=== PATIENT | male | born 1960 | race Caucasian/White ===

== ENCOUNTER 2018-03-25 15:27 | Emergency (ER) | payer SELFPAY ==
[~2018-03-25] VITALS: Ht 177.8 cm; Wt 72.6 kg
--- NOTE | 2018-03-25 16:19 | RAD ---
CT HEAD WITHOUT CONTRAST 03/25/2018 3:44 PM Indication: fall hit head, right side head and ear pain
no priors Comparison: None Procedure: Multidetector CT imaging of the head was performed without the administration of contrast. Findings: There is no evidence of acute intracranial hemorrhage. There is no evidence of acute territorial infarction. Please note that CT is limited for evaluation of acute ischemia. No mass effect or midline shift is identified . The ventricles and basilar cisterns have an appropriate appearance. No abnormal extra-axial fluid collections are seen. No acute osseous changes are identified. Impression: No evidence of acute intracranial abnormality CT cervical spine without contrast. 03/25/2018 3:44 PM Indication:fall hit head, right side head and ear pain
no priors Comparison Study: None Technique: Multidetector CT imaging of the cervical spine was obtained without administration of contrast. Findings: There is no evidence of acute fracture or alignment abnormality of the cervical spine. Fusion of the C2 and C3 vertebra noted both anteriorly and posteriorly. The atlantoaxial articulation and craniocervical junction remain intact. No prevertebral soft tissue edema is identified. Degenerative disc space narrowing is seen at C5 through T1. Diffuse facet arthrosis is noted. Facet joints remain aligned. No bony compromise spinal canal is seen. IMPRESSION: No evidence of acute fracture or alignment abnormality of the cervical spine CT DOSING PQRS STATEMENT: One or more of the following individualized dose reduction techniques were utilized for these examinations: 1. Automated exposure control 2. Adjustment of the mA and/or kV according to patient size 3. Use of iterative reconstruction technique Electronically signed by: Max Jarquin MD (03/25/2018 4:16 PM) [facility]
[2018-03-25] MEDS ORDERED: HYDR-971 PO (16:39)
--- NOTE | 2018-03-25 16:39 | PHYS DOC ---
Past Medical History Past Medical History: No Pertinent History Alcohol Use: None Drug Use: None Adult General Chief Complaint Chief Complaint: HEAD, FACE, NECK, [facility] HPI Patient is a 58 year old male who presented complaining of injury to his head and neck. He states he was working on a project and a piece of 2.4 hit him in right side of head and neck without loss of consciousness last night at 1900 patient complaining of pain since his injury with mild dizziness and denies nausea and vomiting, fever and chills, focal neuro deficit. Patient treated his pain 02/09 and states his last tetanus shot was about 5 years ago. Review of Systems Review of Systems Constitutional: Denies fever or chills [] Eyes: Denies change in visual acuity, redness, or eye pain [] HENT: Denies nasal congestion or sore throat [] Respiratory: Denies cough or shortness of breath [] Cardiovascular: No additional information not addressed in HPI [] GI: Denies abdominal pain, nausea, vomiting, bloody stools or diarrhea [] : Denies dysuria or hematuria [] Musculoskeletal: Denies back pain or joint pain [] Integument: Denies rash or skin lesions [] Neurologic: Reports dizziness and headache, denies focal weakness or sensory changes [] Endocrine: Denies polyuria or polydipsia [] All other systems were reviewed and found to be within normal limits, except as documented in this note. Current Medications Current Medications Current Medications Medications (Trade) Dose Ordered Sig/Srinivasan Start Time Stop Time Status Last Admin Dose Admin Acetaminophen/ Hydrocodone Bitart (Lortab 5/325) 1 tab 1X ONCE 03/25/18 17:00 03/25/18 17:01 03/25/18 16:35 1 TAB Ketorolac Tromethamine (Toradol Im) 60 mg 1X ONCE 03/25/18 16:45 03/25/18 16:45 DC Allergies Allergies Allergies Coded Allergies Type Severity Reaction Last Updated Verified No Known Drug Allergies 03/25/18 No Physical Exam Physical Exam Constitutional: Well developed, well nourished, mild distress, non-toxic appearance. [] HENT: Normocephalic, atraumatic, right ear contusion and small abrasion, bilateral external ears normal, oropharynx moist, no oral exudates, nose normal. [] Eyes: PERRLA, EOMI, conjunctiva normal, no discharge. [] Neck: Immobilized at arrival to ER [] Cardiovascular:Heart rate regular rhythm, no murmur [] Lungs & Thorax: Bilateral breath sounds clear to auscultation [] Abdomen: Bowel sounds normal, soft, no tenderness, no masses, no pulsatile masses. [] Skin: Warm, dry, no erythema, no rash. [] Back: No tenderness, no CVA tenderness. [] Extremities: No tenderness, no cyanosis, no clubbing, ROM intact, no edema. [] Neurologic: Alert and oriented X 3, normal motor function, normal sensory function, no focal deficits noted. [] Psychologic: Affect normal, judgement normal, mood normal. [] Current Patient Data Vital Signs Vital Signs Date Time Temp Pulse Resp B/P (MAP) Pulse Ox O2 Delivery O2 Flow Rate FiO2 03/25/18 16:35 16 97 Room Air 03/25/18 15:38 97.8 64 152/78 (102) 97.8 EKG EKG [] Radiology/Procedures Radiology/Procedures [][facility] [address] [place] [address] IMAGING REPORT Signed PATIENT: BROOKE GUZMAN ACCOUNT: [id number] : 1960 LOCATION: ER AGE: 58 SEX: M EXAM STATUS: REG ER ORD. PHYSICIAN: JOSIE CANO MD REASON: injury PROCEDURE: CT HEAD AND CERVICAL SPINE WO CT HEAD WITHOUT CONTRAST 03/25/2018 3:44 PM Indication: fall hit head, right side head and ear pain
no priors Comparison: None Procedure: Multidetector CT imaging of the head was performed without the administration of contrast. Findings: There is no evidence of acute intracranial hemorrhage. There is no evidence of acute territorial infarction. Please note that CT is limited for evaluation of acute ischemia. No mass effect or midline shift is identified . The ventricles and basilar cisterns have an appropriate appearance. No abnormal extra-axial fluid collections are seen. No acute osseous changes are identified. Impression: No evidence of acute intracranial abnormality CT cervical spine without contrast. 03/25/2018 3:44 PM Indication:fall hit head, right side head and ear pain
no priors Comparison Study: None Technique: Multidetector CT imaging of the cervical spine was obtained without administration of contrast. Findings: There is no evidence of acute fracture or alignment abnormality of the cervical spine. Fusion of the C2 and C3 vertebra noted both anteriorly and posteriorly. The atlantoaxial articulation and craniocervical junction remain intact. No prevertebral soft tissue edema is identified. Degenerative disc space narrowing is seen at C5 through T1. Diffuse facet arthrosis is noted. Facet joints remain aligned. No bony compromise spinal canal is seen. IMPRESSION: No evidence of acute fracture or alignment abnormality of the cervical spine CT DOSING PQRS STATEMENT: One or more of the following individualized dose reduction techniques were utilized for these examinations: 1. Automated exposure control 2. Adjustment of the mA and/or kV according to patient size 3. Use of iterative reconstruction technique Electronically signed by: Max Burch MD (03/25/2018 4:16 PM) [facility] DICTATED and SIGNED BY: MAX BURCH MD DATE: 03/25/18 1602 Course & Med Decision Making Course & Med Decision Making Pertinent Imaging studies reviewed. (See chart for details) Evolution of patient in ER showed 58-year-old male patient with injury to right side of his head last night at home. Patient had contusion of ear and unremarkable CT of head and C-spine. Patient treated with [place] and felt better. Patient instructed to follow-up with a primary care physician from the provided list in ER. [] Dragon Disclaimer Dragon Disclaimer This electronic medical record was generated, in whole or in part, using a voice recognition dictation system. Departure Departure Impression: Primary Impression: Head injury Additional Impression: Contusion of right ear Disposition: HOME, SELF-CARE (at 1636) Condition: IMPROVED Referrals: NO PCP (PCP) Patient Instructions: Contusion, Head Injury, Adult Additional Instructions: Drink plenty of liquids Follow-up with your primary care physician in 3-5 days Return to ER if not getting better Apply ice on affected area Scripts Hydrocodone/Apap 5-325 (NORCO 5-325 TABLET) 1 Each Tablet 1 TAB PO PRN Q6HRS PRN for PAIN, #14 TAB 0 Refills Prov: JOSIE CANO MD 03/25/18 Problem Qualifiers JOSIE CANO MD Mar 25, 2018 16:39
[2018-03-25] MEDS ORDERED: KETOROLAC 60 MG/2 ML INJ. IM ONE (16:45)
[2018-03-25 16:51] VITALS: BP 119/67
[2018-03-25] MEDS ORDERED: HYDROcodone/APAP 5/325MG 1 TAB TABLET PO ONE (17:00)
== END 2018-03-25 17:00 | disposition home or self-care (01) ==
LOC: ER 15:27
DX: S00.431A Contusion of right ear, initial encounter (principal); S09.90XA Unspecified injury of head, initial encounter; S19.9XXA Unspecified injury of neck, initial encounter; R42 Dizziness and giddiness; W22.8XXA Striking against or struck by other objects, initial encounter; Y93.89 Activity, other specified; Y92.89 Other specified places as the place of occurrence of the external cause; Y99.8 Other external cause status
CPT/HCPCS: 70450; 72125; 99284-25

== ENCOUNTER 2019-12-22 03:33 | Emergency (ER) | payer SELFPAY ==
[~2019-12-22] VITALS: Ht 165.1 cm; Wt 90.0 kg
[~2019-12-22 03:33] MED LIST: HYDR-3164 PO
[2019-12-22] MEDS ORDERED: VANCOMYCIN 1GM IVPB FOR OMNI 250 ML IV ONE (04:15)
[2019-12-22] MEDS ORDERED: HYDROcodone/APAP 7.5/325MG 1 TAB TABLET PO ONE (04:30)
[2019-12-22] MEDS ORDERED: FUROSEMIDE 40 MG/4 ML VIAL. IVP ONE (04:30)
[2019-12-22 05:00] LABS: BASO # 0.1 x10^3/uL (0.0-0.2); BASO % 1 % (0-3); EOS # 0.2 x10^3/uL (0.0-0.7); EOS % 3 % (0-3); HEMATOCRIT 40.9 % (39.0-53.0); HEMOGLOBIN 13.6 g/dL (13.0-17.5); LYMPH # 1.3 x10^3/uL (1.0-4.8); LYMPH % 16 % (24-48); MEAN CORPUSCULAR HEMOGLOBIN 30 pg (25-35); MEAN CORPUSCULAR HGB CONC 33 g/dL (31-37); MEAN CORPUSCULAR VOLUME 90 fL (79-100); MONO # 0.9 x10^3/uL (0.0-1.1); MONO % 11 % (0-9); NEUT # 5.6 x10^3/uL (1.8-7.7); NEUT % 69 % (31-73); PLATELET COUNT 217 x10^3/uL (140-400); RED BLOOD COUNT 4.55 x10^6/uL (4.30-5.70); RED CELL DISTRIBUTION WIDTH 13.4 % (11.5-14.5); WHITE BLOOD COUNT 8.1 x10^3/uL (4.0-11.0)
[2019-12-22] MEDS ORDERED: VANCOMYCIN 2 GM in IV NORMAL SALINE 500ML BAG 500 ML IV ONE (05:00)
--- NOTE | 2019-12-22 05:06 | PHYS DOC ---
Past Medical History Past Medical History: No Pertinent History Smoking Status: Current Every Day Smoker Alcohol Use: Occasionally Drug Use: None General Adult EDM: Chief Complaint: LOWER EXTREMITY SWELLING HPI: HPI: Patient is a 59-year-old male who presents with complaint of bilateral lower leg swelling and pain. Patient states that he noticed some drainage from the anterior aspect of his left lower leg earlier yesterday. He states that he has been noticing some swelling to his legs for the last few days, stating that he has been up on his feet a lot, especially on concrete. Patient immediately stating that he would not be able to stay in the hospital, stating that he has to move from his house. Patient states that he is hoping that he can just get some antibiotics because he is afraid he may have some infection in his leg. He denies any chest pain or shortness of breath. He also denies any fever. Patient rates the pain in his legs at a 7 out of 10. [] Review of Systems: Review of Systems: Constitutional: Denies fever or chills. [] Respiratory: Denies cough or shortness of breath. [] Cardiovascular: Denies chest pain or edema. [] GI: Denies abdominal pain, nausea, vomiting. [] Musculoskeletal: Complains of bilateral lower leg swelling and pain. [] Neurologic: Denies headache, focal weakness or sensory changes. [] A full 10 point review of systems has been reviewed and is otherwise negative. Heart Score: Risk Factors: Risk Factors: DM, Current or recent (<one month) smoker, HTN, HLP, family history of CAD, obesity. Risk Scores: Score 0 - 3: 2.5% MACE over next 6 weeks - Discharge Home Score 4 - 6: 20.3% MACE over next 6 weeks - Admit for Clinical Observation Score 7 - 10: 72.7% MACE over next 6 weeks - Early Invasive Strategies Current Medications: Current Medications Medications (Trade) Dose Ordered Sig/Srinivasan Start Time Stop Time Status Last Admin Dose Admin Acetaminophen/ Hydrocodone Bitart (Lortab 7.5/325) 1 tab 1X ONCE 12/22/19 04:30 12/22/19 04:31 DC 12/22/19 04:26 1 TAB Furosemide (Lasix) 40 mg 1X ONCE 12/22/19 04:30 12/22/19 04:31 DC 12/22/19 04:38 40 MG Vancomycin HCl 250 ml @ 250 mls/hr 1X ONCE 12/22/19 04:15 12/22/19 05:14 UNV Vancomycin HCl 2 gm/Sodium Chloride 500 ml @ 250 mls/hr 1X ONCE 12/22/19 05:00 12/22/19 06:59 Allergies: Allergies: Allergies Coded Allergies Type Severity Reaction Last Updated Verified No Known Drug Allergies 03/25/18 No Physical Exam: PE: Constitutional: Well developed, well nourished, no acute distress, non-toxic appearance. [] HENT: Normocephalic, atraumatic, bilateral external ears normal, oropharynx moist, no oral exudates, nose normal. [] Cardiovascular: Regular rate and rhythm [] Lungs & Thorax: Bilateral breath sounds clear to auscultation [] Abdomen: Bowel sounds normal, soft, no tenderness. [] Extremities: Lower legs demonstrate 3+ pitting edema. Left lower leg has erythema and warmth, anteriorly. [] Neurologic: Alert and oriented X 3, no focal deficits noted. [] Current Patient Data: Labs: Laboratory Tests Test 12/22/19 04:33 White Blood Count 8.1 x10^3/uL (4.0-11.0) Red Blood Count 4.55 x10^6/uL (4.30-5.70) Hemoglobin 13.6 g/dL (13.0-17.5) Hematocrit 40.9 % (39.0-53.0) Mean Corpuscular Volume 90 fL (79-100) Mean Corpuscular Hemoglobin 30 pg (25-35) Mean Corpuscular Hemoglobin Concent 33 g/dL (31-37) Red Cell Distribution Width 13.4 % (11.5-14.5) Platelet Count 217 x10^3/uL (140-400) Neutrophils (%) (Auto) 69 % (31-73) Lymphocytes (%) (Auto) 16 % (24-48) L Monocytes (%) (Auto) 11 % (0-9) H Eosinophils (%) (Auto) 3 % (0-3) Basophils (%) (Auto) 1 % (0-3) Neutrophils # (Auto) 5.6 x10^3/uL (1.8-7.7) Lymphocytes # (Auto) 1.3 x10^3/uL (1.0-4.8) Monocytes # (Auto) 0.9 x10^3/uL (0.0-1.1) Eosinophils # (Auto) 0.2 x10^3/uL (0.0-0.7) Basophils # (Auto) 0.1 x10^3/uL (0.0-0.2) Laboratory Tests 12/22/19 04:33 Vital Signs: Vital Signs Date Time Temp Pulse Resp B/P (MAP) Pulse Ox O2 Delivery O2 Flow Rate FiO2 12/22/19 03:50 95.9 80 18 150/66 (94) 99 Room Air 95.9 EKG: EKG: [] Radiology/Procedures: Radiology/Procedures: [] Course & Med Decision Making: Course & Med Decision Making Pertinent Labs and Imaging studies reviewed. (See chart for details) [] Dragon Disclaimer: Dragon Disclaimer: This electronic medical record was generated, in whole or in part, using a voice recognition dictation system. Departure Departure Impression: Primary Impression: Cellulitis Qualified Codes: L03.116 - Cellulitis of left lower limb Disposition: HOME, SELF-CARE Condition: STABLE Referrals: NO PCP (PCP) Patient Instructions: Cellulitis Scripts Furosemide (FUROSEMIDE) 20 Mg Tablet 1 TAB PO DAILY, #7 TAB Prov: SHARON VAUGHN Jr. DO 12/22/19 Sulfamethoxazole/Trimethoprim (BACTRIM DS TABLET) 1 Each Tablet 1 TAB PO BID for 10 Days, #20 TAB 0 Refills Prov: SHARON VAUGHN Jr. DO 12/22/19 Hydrocodone/Apap 5-325 (NORCO 5-325 TABLET) 1 Each Tablet 1-2 EACH PO PRN Q6HRS PRN for PAIN, #15 as needed for pain Prov: SHARON VAUGHN Jr. DO 12/22/19 SHARON VAUGHN Jr. DO December 22, 2019 05:06
[2019-12-22 05:10] LABS: CALCIUM 8.5 mg/dL (8.5-10.1); CREATININE 0.9 mg/dL (0.7-1.3); GFR 85.8; POTASSIUM 3.6 mmol/L (3.5-5.1)
[2019-12-22 05:15] LABS: ALBUMIN 3.3 g/dL (3.4-5.0); ALBUMIN/GLOBULIN RATIO 0.9 (1.0-1.7); TOTAL BILIRUBIN 0.6 mg/dL (0.2-1.0); TOTAL PROTEIN 6.9 g/dL (6.4-8.2)
[2019-12-22] MEDS ORDERED: FURO20TA3 PO (05:47)
[2019-12-22] MEDS ORDERED: SULF1TAB24 PO (05:47)
[2019-12-22] MEDS ORDERED: HYDR-3164 PO (05:47)
[2019-12-22 07:25] VITALS: BP 126/68
== END 2019-12-22 08:00 | disposition home or self-care (01) ==
LOC: ER 03:33
DX: L03.116 Cellulitis of left lower limb (principal); F17.200 Nicotine dependence, unspecified, uncomplicated
CPT/HCPCS: 36415; 80053; 85025; 87040; 96365; 96366; 96375; 99285; J1940; J3370; J7040

== ENCOUNTER 2021-04-25 11:11 | Emergency (ER) | payer SELFPAY ==
[~2021-04-25] VITALS: Ht 177.8 cm; Wt 90.9 kg
[~2021-04-25 11:11] MED LIST changes: +FURO20TA3 PO; +SULF1TAB24 PO
--- NOTE | 2021-04-25 11:51 | ED.ADGEN ---
Past Medical History Past Medical History: No Pertinent History Past Surgical History: No Surgical History Smoking Status: Current Every Day Smoker Alcohol Use: Occasionally Drug Use: None General Adult EDM: Chief Complaint: SKIN RASH/ABSCESS HPI: HPI: Patient is a 61-year-old male who arrives ambulatory to the emergency department with multiple medical complaints. Patient reports over the past several days to weeks he is had swelling of his lower extremities in addition to drainage from his left lower extremity. Patient is concerned that he may have a rash that may be infectious and is seeking evaluation. Patient also states he has a small area of the right brachium which is itchy which has been problematic for him over the past several days however it is improving. Patient was recently released from [facility] and does not have any regular follow-up with a family physician. Patient states was receiving antibiotics as well as pain medication for his rash of his left lower extremity while in [facility]. Despite the patient's previous treatment/illness, he has no history of fever. He further denies any rash elsewhere on his person. Additionally denies any shortness of air or chest pain. He is awake, alert and nontoxic-appearing. Review of Systems: Review of Systems: Constitutional: Denies fever or chills. [] Eyes: Denies change in visual acuity. [] HENT: Denies nasal congestion or sore throat. [] Respiratory: Denies cough or shortness of breath. [] Cardiovascular: Denies chest pain or edema. [] GI: Denies abdominal pain, nausea, vomiting, bloody stools or diarrhea. [] : Denies dysuria. [] Musculoskeletal: Denies back pain or joint pain. [] Integument: Reports rash with swelling of left lower extremity. Patient also reports rash of the right upper extremity with itching. Neurologic: Denies headache, focal weakness or sensory changes. [] Endocrine: Denies polyuria or polydipsia. [] Lymphatic: Denies swollen glands. [] Psychiatric: Denies depression or anxiety. [] Allergies: Allergies: Allergies Coded Allergies Type Severity Reaction Last Updated Verified No Known Drug Allergies 03/25/18 No Physical Exam: PE: Constitutional: Well developed, well nourished, no acute distress, non-toxic appearance. [] HENT: Normocephalic, atraumatic, bilateral external ears normal, oropharynx moist, no oral exudates, nose normal. [] Eyes: PERRLA, EOMI, conjunctiva normal, no discharge. [] Neck: Normal range of motion, no tenderness, supple, no stridor. [] Cardiovascular:Heart rate regular rhythm, no murmur [] Lungs & Thorax: Bilateral breath sounds clear to auscultation [] Abdomen: Bowel sounds normal, soft, no tenderness, no masses, no pulsatile masses. [] Skin: Patient has a very faint red rash of his right upper extremity which blanches upon palpation. There is no tenderness nor is there drainage associated with this. There is slight raising of the skin indicative of likely urticaria/hives. Patient also has warm lower extremities which are not hot nor are they tender to the touch. There is pitting edema bilaterally with greater edema of the left side rather than the right. This is consistent with venous stasis. There are no cellulitic features associated with this rash. There is no drainage present or any ulcerations otherwise. [] Back: No tenderness, no CVA tenderness. [] Extremities: Venous stasis of lower extremities. No tenderness, no cyanosis, no clubbing, ROM intact. Neurologic: Alert and oriented X 3, normal motor function, normal sensory function, no focal deficits noted. [] Psychologic: Affect normal, judgement normal, mood normal. [] Current Patient Data: Labs: Laboratory Tests Test 04/25/21 11:55 Sodium Level 138 mmol/L (136-145) Potassium Level 4.0 mmol/L (3.5-5.1) Chloride Level 102 mmol/L (98-107) Carbon Dioxide Level 28 mmol/L (21-32) Anion Gap 8 (6-14) Blood Urea Nitrogen 14 mg/dL (8-26) Creatinine 0.9 mg/dL (0.7-1.3) Estimated GFR (Cockcroft-Gault) 85.2 Glucose Level 153 mg/dL (70-99) H Calcium Level 8.8 mg/dL (8.5-10.1) Laboratory Tests 04/25/21 11:55 Vital Signs: Vital Signs Date Time Temp Pulse Resp B/P (MAP) Pulse Ox O2 Delivery O2 Flow Rate FiO2 04/25/21 11:39 98.7 77 18 182/92 (122) 99 Room Air 98.7 EKG: EKG: [] Heart Score: C/O Chest Pain: No Risk Factors: Risk Factors: DM, Current or recent (<one month) smoker, HTN, HLP, family history of CAD, obesity. Risk Scores: Score 0 - 3: 2.5% MACE over next 6 weeks - Discharge Home Score 4 - 6: 20.3% MACE over next 6 weeks - Admit for Clinical Observation Score 7 - 10: 72.7% MACE over next 6 weeks - Early Invasive Strategies Radiology/Procedures: Radiology/Procedures: [] Course & Med Decision Making: Course & Med Decision Making Pertinent Labs and Imaging studies reviewed. (See chart for details) [] Dragon Disclaimer: Dragon Disclaimer: This electronic medical record was generated, in whole or in part, using a voice recognition dictation system. Departure Departure Impression: Primary Impression: Venous stasis Additional Impressions: Urticaria Hyperglycemia Disposition: 01 HOME / SELF CARE / HOMELESS Condition: STABLE Referrals: NO PCP (PCP) Patient Instructions: Hyperglycemia, Rash, Venous Stasis and Chronic Venous Insufficiency Scripts Tramadol Hcl (ULTRAM) 50 Mg Tablet 50 MG PO Q6HRS PRN for PAIN for 3 Days, #12 TAB 0 Refills Prov: DESIRAE URENA DO 04/25/21 Prednisone (PREDNISONE) 50 Mg Tablet 1 TAB PO DAILY, #5 TAB Prov: DESIRAE URENA DO 04/25/21 Problem Qualifiers DESIRAE URENA DO Apr 25, 2021 11:51
[2021-04-25 12:30] LABS: CALCIUM 8.8 mg/dL (8.5-10.1); CREATININE 0.9 mg/dL (0.7-1.3); GFR 85.2
[2021-04-25] MEDS ORDERED: PRED50TA PO (12:52)
[2021-04-25] MEDS ORDERED: TRAM-48 PO (12:52)
[2021-04-25 13:00] VITALS: BP 141/68
== END 2021-04-25 13:06 | disposition home or self-care (01) ==
LOC: ER 11:11
DX: I87.8 Other specified disorders of veins (principal); L50.9 Urticaria, unspecified; R73.9 Hyperglycemia, unspecified; F17.200 Nicotine dependence, unspecified, uncomplicated
CPT/HCPCS: 36415; 80048; 99283